=== PATIENT | male | born 1970 | race Hispanic/Latino ===

== ENCOUNTER 2018-08-01 14:39 | Outpatient (CLI) | payer OTHER ==
--- NOTE | 2018-08-01 16:03 | MRI ---
MRI OF THE LEFT KNEE: DATE: 08/01/2018. PROVIDED CLINICAL HISTORY: Left knee pain. FINDINGS: The anterior cruciate ligament, posterior cruciate ligament, mediolateral ligament, and lateral colla teral ligamentous complex demonstrate an intact MR appearance, as does the extensor mechanism. There is a near full-thickness to full-thickness radial tear involving the posterior horn of the medi al meniscus as it approaches the meniscal root. The lateral meniscus demonstrates no evidence for a tear. No focal articular cartilage defect is apparent. The amount of fluid within the knee joint appears physiologic. No focal concerning regional marrow or muscular signal abnormality is apparent. IMPRESSION: Radial tear involving the posterior horn of the medial meniscus as it approaches the meniscal root. POS: [facility]
== END 2018-08-01 14:40 | disposition home or self-care (01) ==
LOC: BICMRI 14:39
PROVIDERS: ATTEND Family Medicine
DX: S83.92XA Sprain of unspecified site of left knee, initial encounter (principal); S83.242A Other tear of medial meniscus, current injury, left knee, initial encounter